=== PATIENT | female | born 1975 | race African-American/Black ===

== ENCOUNTER 2023-04-07 09:59 | Emergency (ER) | payer OTHER ==
[~2023-04-07] VITALS: Ht 165.1 cm; Wt 90.3 kg
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
--- NOTE | 2023-04-07 10:59 | NUR ---
Patient discharged to home in stable condition. Written and verbal after care instructions given. Patient verbalizes understanding of instruction.
[2023-04-07 11:01] VITALS: BP 133/79; TEMP 97; O2SAT 100
== END 2023-04-07 11:05 | disposition home or self-care (01) ==
LOC: ER 10:02
DX: M25.512 Pain in left shoulder (principal); I10 Essential (primary) hypertension; F41.9 Anxiety disorder, unspecified
CPT/HCPCS: 73030-TC